=== PATIENT | female | born 1945 | race Hispanic/Latino ===

== ENCOUNTER 2019-02-27 17:01 | Emergency (ER) | payer OTHER ==
--- OUTSIDE RECORDS SUMMARY | 2019-02-27 17:04 | XMS REPORT | Summary of Care ---
:1945 Author Organization [facility] - Health Address [address] [place] [address] Care Team Providers Name Role Phone Joshua Phelps MD Primary Care Provider Encounter Details Date Type Department Care Team Description 02/05/2019 Orders Only [facility] Doctor Unassigned, No [address] [facility] [place] [address] [address] [place] [address] Allergies No Known Allergiesdocumented as of this encounter (statuses as of 02/17/2019) Medications Medication Sig Dispensed Refills Start Date End Date Status aspirin 81 mg chewable Take 1 tablet by 30 tablet 3 08/19/2016 Active tablet mouth daily. gabapentin 300 mg Take 1 capsule 30 capsule 5 09/03/2017 Active capsuleIndications: by mouth at Post herpetic neuralgia bedtime. atorvastatin 40 mg Take 1 tablet by 90 tablet 3 12/02/2017 Active tablet mouth every evening. pantoprazole 40 mg EC Take 1 tablet by 90 tablet 4 03/24/2018 Active tablet mouth daily. benzonatate (TESSALON Take 1 capsule 20 capsule 0 08/26/2018 Active PERLES) 100 mg by mouth 3 capsuleIndications: (three) times Acute URI, Acute daily. bronchitis, unspecified organism albuterol 90 Inhale 2 Puffs 8.5 g 0 08/26/2018 Active mcg/actuation every 6 (six) inhalerIndications: hours as needed Acute URI, Acute for Wheezing. bronchitis, unspecified organism loratadine 10 mg Take 1 tablet by 30 tablet 0 08/26/2018 Active tabletIndications: mouth daily. Acute URI, Acute bronchitis, unspecified organism azithromycin 500 mg Take 1 tablet by 3 tablet 0 11/16/2018 Active tabletIndications: mouth daily. Rhinosinusitis documented as of this encounter (statuses as of 02/17/2019) Active Problems Problem Noted Date Acute pylorus ulcer 07/26/2017 Intractable abdominal pain 07/25/2017 Stroke 08/17/2016 Type 2 diabetes mellitus without complication 05/26/2015 Essential hypertension, benign 05/26/2015 documented as of this encounter (statuses as of 02/17/2019) Resolved Problems Problem Noted Date Resolved Date Contusion, chest wall 05/26/2015 06/13/2015 documented as of this encounter (statuses as of 02/17/2019) Immunizations Name Administration Dates Next Due Influenza Virus Vaccine 05/01/2018, 06/13/2017, 04/16/2016 Pneumococcal 13 Conjugate, PCV13 (Prevnar 12/20/2017 13) Pneumococcal Polysaccharide, PPSV23 07/14/2012 (PNEUMOVAX) documented as of this encounter Social History Tobacco Use Types Packs/Day Years Used Date Never Smoker Smokeless Tobacco: Never Used Alcohol Use Drinks/Week oz/Week Comments No Sex Assigned at Date Recorded Not on file Job Start Date Occupation Industry Not on file Not on file Not on file Travel History Travel Start Travel End No recent travel history available. documented as of this encounter Last Filed Vital Signs Not on filedocumented in this encounter Plan of Treatment Date Type Specialty Care Team Description 03/16/2019 Office Visit Family Medicine Joshua Phelps MD [address] [place] [address] [place] [phone] Health Maintenance Due Date Last Done Comments HEPATITIS C (HCV) SCREEN 1945 EYE EXAM 10/06/1955 DTaP,Tdap,and Td Vaccines (1 - 1964 Tdap) Zoster Recombinant Vaccine 10/06/1995 (SHINGRIX) (1 of 2) MAMMOGRAM 07/04/2006 07/04/2005 Medicare Wellness Visit 2010 Osteoporosis Screening 2010 07/04/2005 URINE MICROALBUMIN 04/30/2017 04/30/2016 FOOT EXAM 07/25/2017 07/25/2016 LDL-C 08/18/2017 08/18/2016, 04/30/2016 HgA1C 03/03/2018 09/03/2017, 04/09/2017, 08/18/2016, Additional history exists CREATININE (SERUM) 07/26/2018 07/26/2017, 07/25/2017, 07/22/2017, Additional history exists INFLUENZA VACCINE 03/14/2019 05/01/2018, 06/13/2017, 04/16/2016 COLONOSCOPY 07/25/2026 07/25/2016 (Previously completed) PNEUMOCOCCAL VACCINES 65+ Completed 12/20/2017, 07/14/2012 documented as of this encounter Implants Implanted Type Area Re Examiner Device Identifier Shelf Expiration Model / Serial Date / Lot Kd KD documented as of this encounter Procedures Procedure Name Priority Date/Time Associated Diagnosis Comments MEDICAL Routine 02/05/2019 12:01 AM CDT RELEASE/CLEARANCE FORMS documented in this encounter Results Not on filedocumented in this encounter Insurance Payer Benefit Plan / Subscriber ID Effective Phone Address Type Group Dates [facility] [id number] 2017-Prese Medicare Adv [employer] nt PPO MANAGED MEDICARE GOLD MEDICARE [place] [id number] 2018-Prese Medicare Adv [employer] nt HMO MANAGED MEDICARE ADV MEDICARE HMO documented as of this encounter
--- OUTSIDE RECORDS SUMMARY | 2019-02-27 17:04 | XMS REPORT | Summary of Care ---
:1945 Author Organization [facility] Address [address] [place] [id number] Care Team Providers Name Role Phone Joshua Phelps MD Primary Care Provider Reason for Visit Reason Comments Refill Request Encounter Details Date Type Department Care Team Description 02/19/2019 Refill [facility] Family Medicine Joshua Phelps MD Refill Request - [address] [facility] [place] [address] [place] [phone] Allergies No Known Allergiesdocumented as of this encounter (statuses as of 02/19/2019) Medications Medication Sig Dispensed Refills Start Date End Date Status aspirin 81 mg chewable Take 1 tablet by 30 tablet 3 08/19/2016 Active tablet mouth daily. gabapentin 300 mg Take 1 capsule by 30 capsule 5 09/03/2017 Active capsuleIndications: mouth at bedtime. Post herpetic neuralgia atorvastatin 40 mg Take 1 tablet by 90 tablet 3 12/02/2017 Active tablet mouth every evening. pantoprazole 40 mg EC Take 1 tablet by 90 tablet 4 03/24/2018 Active tablet mouth daily. benzonatate (TESSALON Take 1 capsule by 20 capsule 0 08/26/2018 Active PERLES) 100 mg mouth 3 (three) capsuleIndications: times daily. Acute URI, Acute bronchitis, unspecified organism albuterol 90 Inhale 2 [...] 0 11/16/2018 Active tabletIndications: mouth daily. Rhinosinusitis losartan 100 mg Take 1 tablet by 90 tablet 1 02/17/2019 Active tabletIndications: mouth daily. Essential hypertension, benign carvedilol 12.5 mg Take 1 tablet by 180 tablet 3 02/17/2019 Active tabletIndications: mouth 2 (two) Essential times daily with hypertension, benign meals. amLODIPine 10 mg Take 1 tablet by 90 tablet 3 02/17/2019 Active tabletIndications: mouth daily. Essential hypertension, benign Blood-Glucose Meter Use as directed 1 Each 0 02/17/2019 Active (ACCU-CHEK VIOLA PLUS for once a day METER) Misc and as needed blood glucose monitoring for ICD E11.9 SITagliptin (JANUVIA) Take 1 tablet by 30 tablet 0 02/17/2019 Active 100 mg tablet mouth daily. metformin ER 500 mg 24 Take 2 tablets by 180 tablet 3 02/17/2019 Active hr tabletIndications: mouth daily with Type 2 diabetes breakfast. mellitus without complication, without long-term current use of insulin documented as of this encounter (statuses as of 02/19/2019) Active Problems Problem Noted Date Acute pylorus ulcer 07/26/2017 Intractable abdominal pain 07/25/2017 Stroke 08/17/2016 Type 2 diabetes mellitus without complication 05/26/2015 Essential hypertension, benign 05/26/2015 documented as of this encounter (statuses as of 02/19/2019) Resolved Problems Problem Noted Date Resolved Date Contusion, chest wall 05/26/2015 06/13/2015 documented as of this encounter (statuses as of 02/19/2019) Immunizations Name Administration Dates Next Due Influenza [...] Office Visit Family Medicine Joshua Phelps MD [address] [place] [address] [place] [phone] Health Maintenance Due Date Last Done Comments [...] of this encounter Implants Implanted Type Area Customer Care Associate Device Identifier Shelf Expiration Model / Serial Date / Lot Kd KD documented as of this encounter Results Not on filedocumented in this encounter Visit Diagnoses Diagnosis Essential hypertension, benign Type 2 diabetes mellitus without complication, without long-term current use of insulin documented in this encounter Insurance Payer Benefit Plan / Subscriber ID Effective Phone Address Type Group Dates [facility] [id number] 2017-Prese Medicare Adv HEALTHCARE - HEALTHCARE nt PPO MANAGED MEDICARE GOLD MEDICARE [place] [id number] 2018-Prese Medicare Adv HEALTHCARE - HEALTHCARE nt HMO MANAGED MEDICARE ADV MEDICARE HMO documented as of this encounter
--- OUTSIDE RECORDS SUMMARY | 2019-02-27 17:04 | XMS REPORT | Summary of Care ---
:1945 Author Organization [facility] Address [address] [place] [address] Care Team Providers Name Role Phone Joshua Phelps MD Primary Care Provider Reason for Visit Reason Comments Refill Request Encounter Details Date Type Department Care Team Description 02/16/2019 Refill [facility] Family Medicine Joshua Phelps MD Refill Request - [address] [facility] [place] [address] [place] [phone] Allergies No Known Allergiesdocumented as of this encounter (statuses as of 02/17/2019) Medications Medication Sig Dispensed Refills Start Date End Date Status aspirin 81 mg Take 1 tablet 30 tablet 3 08/19/2016 Active chewable tablet by mouth daily. gabapentin 300 mg Take 1 capsule 30 capsule 5 09/03/2017 Active capsuleIndications: by mouth at Post herpetic bedtime. neuralgia atorvastatin 40 mg Take 1 tablet 90 tablet 3 12/02/2017 Active tablet by mouth every evening. pantoprazole 40 mg Take 1 tablet 90 tablet 4 03/24/2018 Active EC tablet by mouth daily. benzonatate Take 1 capsule 20 capsule 0 08/26/2018 Active (TESSALON PERLES) by mouth 3 100 mg (three) times capsuleIndications: daily. Acute URI, Acute bronchitis, unspecified organism albuterol 90 Inhale 2 Puffs 8.5 g 0 08/26/2018 Active mcg/actuation every 6 (six) inhalerIndications: hours as needed Acute URI, Acute for Wheezing. bronchitis, unspecified organism loratadine 10 mg Take 1 tablet 30 tablet 0 08/26/2018 Active tabletIndications: by mouth daily. Acute URI, Acute bronchitis, unspecified organism azithromycin 500 mg Take 1 tablet 3 tablet 0 11/16/2018 Active tabletIndications: by mouth daily. Rhinosinusitis losartan 100 mg Take 1 tablet 90 tablet 1 02/17/2019 Active tabletIndications: by mouth daily. Essential hypertension, benign carvedilol 12.5 mg Take 1 tablet 180 tablet 3 02/17/2019 Active tabletIndications: by mouth 2 Essential (two) times hypertension, daily with benign meals. amLODIPine 10 mg Take 1 tablet 90 tablet 3 02/17/2019 Active tabletIndications: by mouth daily. Essential hypertension, benign Blood-Glucose Meter Use as directed 1 Each 0 02/17/2019 Active (ACCU-CHEK VIOLA for once a day PLUS METER) Misc and as needed blood glucose monitoring for ICD E11.9 SITagliptin Take 1 tablet 30 tablet 0 02/17/2019 Active (JANUVIA) 100 mg by mouth daily. tablet metformin ER 500 mg Take 2 tablets 180 tablet 3 02/17/2019 Active 24 hr by mouth daily tabletIndications: with breakfast. Type 2 diabetes mellitus without complication, without long-term current use of insulin sitaGLIPtin Take 100 mg by 0 Discontinued (JANUVIA) 100 mg mouth daily. 9 tablet carvedilol 12.5 mg Take 1 tablet 180 tablet 3 12/02/2017 Discontinued tabletIndications: by mouth 2 9 Essential (two) times hypertension, daily with benign meals. amLODIPine 10 mg Take 1 tablet 90 tablet 3 12/02/2017 Discontinued tabletIndications: by mouth daily. 9 Essential hypertension, benign metformin ER 500 mg Take 2 tablets 180 tablet 3 12/02/2017 Discontinued 24 hr by mouth daily 9 tabletIndications: with breakfast. Type 2 diabetes mellitus without complication, without long-term current use of insulin losartan 100 mg Take 1 tablet 90 tablet 1 03/24/2018 Discontinued tabletIndications: by mouth daily. 9 Essential hypertension, benign ACCU-CHEK VIOLA Use as directed 1 Each 0 05/12/2018 Discontinued PLUS METER Misc for once a day 9 and as needed blood glucose monitoring for ICD E11.9 documented as of this encounter (statuses as [...] Office Visit Family Medicine Joshua Phelps MD [address] [place] [address] [address] [place], JOSE L [phone] Health Maintenance Due Date Last Done Comments [...] of this encounter Implants Implanted Type Area Patient Liaison Device Identifier Shelf Expiration Model / Serial Date / Lot Kd KD documented as of this encounter Results Not on filedocumented in this encounter Visit Diagnoses Diagnosis Essential hypertension, benign Type 2 diabetes mellitus without complication, without long-term current use of insulin documented in this encounter Insurance Payer Benefit Plan / Subscriber ID Effective Phone Address Type Group Dates [facility] [id number] 2017-Prese Medicare Adv HEALTHCARE - HEALTHCARE nt PPO MANAGED MEDICARE GOLD MEDICARE [place] [id number] 2018-Prese Medicare Adv [employer] - HEALTHCARE nt HMO MANAGED MEDICARE ADV MEDICARE HMO documented as of this encounter
--- OUTSIDE RECORDS SUMMARY | 2019-02-27 17:05 | XMS REPORT ---
:1945 Author [facility] Address [address] [place] [address] Care Team Providers Name Role Phone Unavailable Unavailable Unavailable Problems This patient has no known problems. Allergies, Adverse Reactions, Alerts This patient has no known allergies or adverse reactions. Medications This patient has no known medications.
[2019-02-27] MEDS ORDERED: NA CHLORIDE 0.9% 500 ML ONE (17:38)
[2019-02-27 18:07] LABS: Absolute Lymphocytes (CBC) 1.6 K/uL (0.7-4.9); Hematocrit 36.7 % (36.0-45.0); Lymphocytes % 23.3 % (15.3-44.8); MPV 10.8 fL (7.6-11.3); RBC Red Blood Cell Count 4.17 M/uL (3.86-4.86)
[2019-02-27 18:17] LABS: ALT/SGPT 22 U/L (12-78); AST/SGOT 16 U/L (15-37); Albumin 3.4 g/dL (3.4-5.0); Alkaline Phosphatase 143 U/L (45-117); BUN Blood Urea Nitrogen 24 mg/dL (7-18); Bicarbonate 26 mmol/L (21-32); Bilirubin Direct < 0.1 mg/dL (0-0.2); Bilirubin Total 0.2 mg/dL (0.2-1.0); Glucose Level 192 mg/dL (74-106); Lipase 280 U/L (73-393); Potassium 3.7 mmol/L (3.5-5.1); Protein, Total 7.3 g/dL (6.4-8.2); Sodium Level 141 mmol/L (136-145)
[2019-02-27 18:26] LABS: Urine Blood TRACE (NEG); Urine Glucose NEGATIVE (NEG); Urine Protein 3+ (NEG); Urine Specific Gravity >1.030 (1.005-1.030); Urine pH 5.5 (5.0-7.0)
[2019-02-27 18:27] LABS: Urine Bacteria <20 /HPF (<20); Urine Culture Reflex Order NOT NEEDED; Urine RBC <5 /HPF (NONE SEEN)
--- NOTE | 2019-02-27 19:06 | RAD REPORT ---
EXAM DESCRIPTION: CT - Stone Protocol - 02/27/2019 6:58 pm CLINICAL HISTORY: Flank pain. FLANK PAIN COMPARISON: <Comparisons> TECHNIQUE: Axial images were obtained without oral or IV contrast. Lack of contrast limits solid org an and vascular assessment. The lipal-lf-emtr spans the entirety of the system partially obscuring uppermost abdomen and lung bases. Coronal reformatted images were obtained and reviewed. All CT scans are performed using dose optimization technique as appropriate and may include automated exposure control or mA/KV adjustment according to patient size. FINDINGS: Emphysematous changes are present in the lung base. Small hiatal hernia is present. Cholec ystectomy clips. Imaged portions of the liver and spleen show no suspicious findings on non-contrast imaging. The panc reas and adrenal glands are normal. No pathologic lymphadenopathy in the abdomen or pelvis. No urinary tract stones or obstructive uropathy. Left extrarenal pelvis noted. No bowel obstruction, free air, free fluid or abscess. Normal appendix noted. No acute fracture or subluxation seen. Moderate lumbosacral degenerative changes. IMPRESSION: No urinary tract stones or obstructive uropathy. No trauma related abnormality discerned.
[2019-02-27] MEDS ORDERED: KETOROLAC 30 MG/ML INJ ONE (19:07)
--- NOTE | 2019-02-27 19:24 | ER ---
Nurse's Notes [facility] Name: Nell Mendoza Age: 73 yrs Sex: Female : 1945 Arrival Date: 02/27/2019 Time: 17:06 Bed 16 Private MD: Diagnosis: Pain in right hip;Low back pain Presentation: 02/27 17:10 Presenting complaint: Right flank and right hip pain after slipped on stairs and hit hb railing on right side x 1 week ago. Also c/o urinary incontinence since fall. Transition of care: patient was not received from another setting of care. Onset of symptoms was February 27, 2019. Risk Assessment: Do you want to hurt yourself or someone else? Patient reports no desire to harm self or others. Initial Sepsis Screen: Does the patient meet any 2 criteria? No. Patient's initial sepsis screen is negative. Does the patient have a suspected source of infection? No. Patient's initial sepsis screen is negative. Care prior to arrival: None. 17:10 Method Of Arrival: Ambulatory hb 17:10 Acuity: SOPHIA 3 hb Historical: - Allergies: 17:11 No Known Allergies; hb - Immunization history:: Adult Immunizations up to date. - Social history:: Smoking status: Patient/guardian denies using tobacco. - Ebola Screening: : No symptoms or risks identified at this time. Screenin:20 Abuse screen: Denies threats or abuse. Denies injuries from another. Nutritional ca1 screening: No deficits noted. Tuberculosis screening: No symptoms or risk factors identified. Fall Risk Fall in past 12 months (25 points). IV access (20 points). Ambulatory Aid- Crutches/Cane/Walker (15 pts). Assessment: 17:20 General: Appears in no apparent distress. comfortable, Behavior is calm, cooperative, ca1 appropriate for age. Pain: Complains of pain in right low back Pain currently is 8 out of 10 on a pain scale. Pain began about a week. Neuro: Level of Consciousness is awake, alert, obeys commands, Oriented to person, place, time, situation. Cardiovascular: Heart tones S1 S2 present Capillary refill < 3 seconds Patient's skin is warm and dry. Respiratory: Airway is patent Respiratory effort is even, unlabored, Respiratory pattern is regular, symmetrical, Breath sounds are clear bilaterally. GI: Abdomen is round non-distended, Bowel sounds present X 4 quads. Abd is soft and non tender X 4 quads. : Urine is clear. EENT: No deficits noted. No signs and/or symptoms were reported regarding the EENT system. Derm: Skin is intact, is healthy with good turgor, Skin is pink, warm \T\ dry. Musculoskeletal: Circulation, motion, and sensation intact. Capillary refill < 3 seconds, Range of motion: intact in all extremities. 18:19 Reassessment: Patient and/or family updated on plan of care and expected duration. Pain ca1 level reassessed. Patient is alert, oriented x 3, equal unlabored respirations, skin warm/dry/pink. 19:11 Reassessment: Patient appears in no apparent distress at this time. Patient and/or aa1 family updated on plan of care and expected duration. Pain level reassessed. Patient is alert, oriented x 3, equal unlabored respirations, skin warm/dry/pink. Awaiting CT results. 19:50 Reassessment: Patient appears in no apparent distress at this time. Patient is alert, aa1 oriented x 3, equal unlabored respirations, skin warm/dry/pink. Discussed d/c \T\ f/u instructions with pt; denies questions or concerns at this time. Ambulatory to lobby with steady gait Patient states feeling better. Patient states symptoms have improved. Vital Signs: 17:11 BP 189 / 80; Pulse 70; Resp 16; Temp 97.8; Pulse Ox 100% on R/A; Weight 68.95 kg; hb Height 5 ft. 1 in. (154.94 cm); Pain 8/10; 18:00 BP 141 / 53; Pulse 58; Resp 17 S; Pulse Ox 99% on R/A; ca1 19:11 BP 160 / 76; Pulse 60; Resp 18; Pulse Ox 100% on R/A; Pain 8/10; aa1 17:11 Body Mass Index 28.72 (68.95 kg, 154.94 cm) hb ED Course: 17:06 Patient arrived in ED. mr 17:11 Triage completed. hb 17:11 Arm band placed on. hb 17:16 Heraclio Solis PA is PHCP. cp 17:20 Patient has correct armband on for positive identification. Placed in gown. Bed in low ca1 position. Call light in reach. Side rails up X 1. Pulse ox on. NIBP on. Warm blanket given. 17:31 Rosie Payne, KAYLA is Primary Nurse. ca1 17:50 No provider procedures requiring assistance completed. Inserted saline lock: 20 gauge ca1 in left antecubital area, using aseptic technique. Blood collected. 18:26 Adalberto De La Paz MD is Attending Physician. cp 18:59 CT Stone Protocol In Process Unspecified. EDMS 19:00 CT completed. Patient tolerated procedure well. Patient moved back from CT. mw3 19:50 IV discontinued, intact, bleeding controlled, No redness/swelling at site. Pressure aa1 dressing applied. Administered Medications: 17:50 Drug: NS 0.9% 500 ml Route: IV; Rate: 500 ml/hr; Site: left antecubital; ca1 19:07 Drug: TORadol - Ketorolac 15 mg Route: IVP; Site: left antecubital; aa1 19:42 Follow up: Response: No adverse reaction; Pain is decreased aa1 Outcome: 19:23 Discharge ordered by MD. cp 19:50 Discharged to home ambulatory, with family. aa1 19:50 Condition: good 19:50 Discharge instructions given to patient, family, Instructed on discharge instructions, follow up and referral plans. medication usage, Demonstrated understanding of instructions, follow-up care, medications. 19:51 Patient left the ED. aa1 Signatures: Dispatcher [employer] EDRea Cooper RN RN aa1 Raphael Bonnie aguilar Heraclio Solis, GINA PA Kim Boyd RN RN Veda Vital mw3 Rsoie Payne RN RN ca1 Corrections: (The following items were deleted from the chart) 17:47 17:10 Presenting complaint: Right flank and right hip pain after slipped on stairs and hb hit railing on right side 1 week ago. Also c/o urinary incontinence since fall. hb 18:00 17:20 BP 141 / 53; Pulse 58bpm; Resp 17bpm; Spontaneous; Pulse Ox 99% RA; ca1 ca1
--- NOTE | 2019-02-27 19:25 | EDPHYS ---
Physician Documentation [facility] Name: Nell Mendoza Age: 73 yrs Sex: Female : 1945 Arrival Date: 02/27/2019 Time: 17:06 Bed 16 Private MD: ED Physician Adalberto De La Paz HPI: 02/27 17:30 This 73 yrs old Female presents to ER via Ambulatory with complaints of Fall cp Injury. 17:30 The patient or guardian reports pain. cp 17:30 The complaints affect the right low back and right hip. cp 17:30 Onset: The symptoms/episode began/occurred 1 week(s) ago. cp 17:30 Patient reports she was walking down stairs when she lost her balance causing her to cp stumble. Patient denies falling to ground or falling onto stairs but reports continued pain in right lower back, right flank and right hip since. Historical: - Allergies: 17:11 No Known Allergies; hb - Immunization history:: Adult Immunizations up to date. - Social history:: Smoking status: Patient/guardian denies using tobacco. - Ebola Screening: : No symptoms or risks identified at this time. ROS: 17:35 Constitutional: Negative for body aches, chills, fever, poor PO intake. cp 17:35 Eyes: Negative for injury, pain, redness, and discharge. cp 17:35 ENT: Negative for drainage from ear(s), ear pain, sore throat, difficulty swallowing, difficulty handling secretions. 17:35 Cardiovascular: Negative for chest pain, edema, palpitations. 17:35 Respiratory: Negative for cough, shortness of breath, wheezing. 17:35 Abdomen/GI: Negative for abdominal pain, nausea, vomiting, and diarrhea, constipation, black/tarry stool, rectal bleeding, bowel incontinence. 17:35 Back: Positive for pain at rest, pain with movement, of the right low back. 17:35 : Positive for flank pain, bladder incontinence Negative for urinary symptoms. 17:35 MS/extremity: Positive for pain, of the right hip, Negative for injury or acute deformity, decreased range of motion, paresthesias. 17:35 Skin: Negative for cellulitis, rash. 17:35 Neuro: Negative for altered mental status, headache, weakness. 17:35 All other systems are negative. Exam: 17:45 Constitutional: The patient appears in no acute distress, alert, awake, non-toxic, well cp developed, well nourished. 17:45 Head/Face: Normocephalic, atraumatic. cp 17:45 Eyes: Periorbital structures: appear normal, Conjunctiva: normal, no exudate, no injection, Sclera: no appreciated abnormality, Lids and lashes: appear normal, bilaterally. 17:45 ENT: External ear(s): are unremarkable, Nose: is normal, Mouth: is normal, Posterior pharynx: is normal, airway is patent. 17:45 Neck: ROM/movement: is normal, is supple, without pain, no range of motions limitations, no nuchal rigidity. 17:45 Chest/axilla: Inspection: normal, Palpation: is normal, no crepitus, no tenderness. 17:45 Cardiovascular: Rate: normal, Rhythm: regular, Edema: is not appreciated, JVD: is not appreciated. 17:45 Respiratory: the patient does not display signs of respiratory distress, Respirations: normal, no use of accessory muscles, no retractions, no splinting, no tachypnea, labored breathing, is not present, Breath sounds: are clear throughout, no decreased breath sounds, no stridor, no wheezing. 17:45 Abdomen/GI: Inspection: abdomen appears normal, Bowel sounds: active, all quadrants, Palpation: abdomen is soft and non-tender, in all quadrants, rebound tenderness, is not appreciated, voluntary guarding, is not appreciated, involuntary guarding, is not appreciated. 17:45 Back: pain, that is moderate, of the right low back, ROM is painful, CVA tenderness, is absent, vertebral tenderness, is not appreciated. 17:45 Musculoskeletal/extremity: ROM: full passive range of motion, in the right hip, Perfusion: the extremity is normally perfused throughout, Sensation intact. Joints: All joints are normal except the right hip displays pain and tenderness noted posterior right hip, Weight bearing: able to fully bear weight. 17:45 Skin: no rash present. 17:45 Neuro: Orientation: to person, place \T\ time. Mentation: is normal, Motor: moves all fours, strength is normal, Sensation: is normal. Vital Signs: 17:11 BP 189 / 80; Pulse 70; Resp 16; Temp 97.8; Pulse Ox 100% on R/A; Weight 68.95 kg; hb Height 5 ft. 1 in. (154.94 cm); Pain 8/10; 18:00 BP 141 / 53; Pulse 58; Resp 17 S; Pulse Ox 99% on R/A; ca1 19:11 BP 160 / 76; Pulse 60; Resp 18; Pulse Ox 100% on R/A; Pain 8/10; aa1 17:11 Body Mass Index 28.72 (68.95 kg, 154.94 cm) hb MDM: 17:21 Patient medically screened. cp 18:00 Differential diagnosis: hip fracture, bursitis, strain, sciatica, kidney stone, UTI. cp 19:22 Data reviewed: vital signs, nurses notes, lab test result(s), radiologic studies, CT cp scan. 19:22 Counseling: I had a detailed discussion with the patient and/or guardian regarding: the cp historical points, exam findings, and any diagnostic results supporting the discharge/admit diagnosis, lab results, radiology results, the need for outpatient follow up, a family practitioner, to return to the emergency department if symptoms worsen or persist or if there are any questions or concerns that arise at home. Response to treatment: the patient's symptoms have mildly improved after treatment, and as a result, I will discharge patient. 02/27 17:28 Order name: Basic Metabolic Panel; Complete Time: 18:30 cp 02/27 18:30 Interpretation: Normal except: GLUC 192; BUN 24; GFR 41. cp 02/27 17:28 Order name: CBC with Diff; Complete Time: 18:30 cp 02/27 18:30 Interpretation: Normal except: EOSINOPHIL % 4.5. cp 02/27 17:28 Order name: Creatinine for Radiology; Complete Time: 18:30 cp 02/27 17:28 Order name: Hepatic Function; Complete Time: 18:30 cp 02/27 17:28 Order name: Lipase; Complete Time: 18:30 cp 02/27 17:28 Order name: Urine Microscopic Only; Complete Time: 18:30 cp 02/27 17:28 Order name: IV Saline Lock; Complete Time: 17:53 cp 02/27 17:28 Order name: Labs collected and sent; Complete Time: 17:53 cp 02/27 17:28 Order name: Urine Dipstick-Ancillary (obtain specimen); Complete Time: 17:53 cp 02/27 17:56 Order name: Urine Dipstick--Ancillary (enter results); Complete Time: 18:30 ms 02/27 18:31 Order name: CT Stone Protocol; Complete Time: 19:18 cp 02/27 19:18 Interpretation: Report reviewed. cp Administered Medications: 17:50 Drug: NS 0.9% 500 ml Route: IV; Rate: 500 ml/hr; Site: left antecubital; ca1 19:07 Drug: TORadol - Ketorolac 15 mg Route: IVP; Site: left antecubital; aa1 19:42 Follow up: Response: No adverse reaction; Pain is decreased aa1 Disposition: 02/27/19 19:23 Discharged to Home. Impression: Pain in right hip, Low back pain. - Condition is Stable. - Discharge Instructions: Back Pain, Adult, Hip Pain, Back Exercises. - Prescriptions for Mobic 7.5 mg Oral Tablet - take 1 tablet by ORAL route once daily take with food; 20 tablet. Tramadol 50 mg Oral Tablet - take 1 tablet by ORAL route every 8 hours as needed; 12 tablet. - Medication Reconciliation Form, Thank You Letter, Antibiotic Education, Prescription Opioid Use form. - Follow up: Private Physician; When: 2 - 3 days; Reason: Recheck today's complaints. - Problem is new. - Symptoms have improved. Signatures: Dispatcher [employer] EDRea Cooper RN RN aa1 Heraclio Solis PA PA cp Kim Casey RN RN Rosie Payne RN RN ca1 Corrections: (The following items were deleted from the chart) 19:51 19:23 02/27/2019 19:23 Discharged to Home. Impression: Pain in right hip; Low back aa1 pain. Condition is Stable. Forms are Medication Reconciliation Form, Thank You Letter, Antibiotic Education, Prescription Opioid Use. Follow up: Private Physician; When: 2 - 3 days; Reason: Recheck today's complaints. Problem is new. Symptoms have improved. cp
== END 2019-02-27 19:51 | disposition home or self-care (01) ==
LOC: ER 17:01
DX: M54.5 Low back pain (principal); M25.551 Pain in right hip; W17.89XA Other fall from one level to another, initial encounter; Y93.89 Activity, other specified
CPT/HCPCS: 36415; 74176; 76377; 80048; 80076; 81003; 81015; 83690; 85025; 96374; 99284

== ENCOUNTER 2022-12-02 13:35 | Emergency (ER) | payer MEDICARE, OTHER ==
--- OUTSIDE RECORDS SUMMARY | 2022-12-02 13:39 | XMS REPORT | Continuity of Care Document ---
:1945 Author Organization [facility] Address [address] [place] [address] Care Team Providers Name Role Phone Peyton Phelps MD Primary Care Physician Ruel Olivera Attending Clinician Unavailable Iyanoye_S Attending Clinician Unavailable Modeste_s Attending Clinician Unavailable Bryan Hernandez MD Attending Clinician BRYAN HERNANDEZ Attending Clinician Unavailable MARK RAM Attending Clinician Unavailable ERNESTO KARIMI Attending Clinician Unavailable RUTH ADAME Attending Clinician Unavailable MARY JANE ROBLES Attending Clinician Unavailable MARY JANE ROBLES Attending Clinician Unavailable STU HOUSE Attending Clinician Unavailable PEYTON PHELPS Attending Clinician Unavailable CHARO ELIZABETH Attending Clinician Unavailable Iyanoye_S Admitting Clinician Unavailable Modeste_s Admitting Clinician Unavailable Payers Payer Name Policy Type Policy Number Effective Date Expiration Date S [facility] [id number] (MEDICARE 00:00:00 REPLACEMENT HMO) [place] [id number] [id number] 2020 Common 00:00:00 [facility] HUMANA CHOICE [id number] 2019 00:00:00 [facility] [id number] 2017 MEDICARE GOLD 00:00:00 Problems Condition Condition Condition Status Onset Resolution Last Treating Co mments Source Name Details Category Date Date Treatment Clinician Date Acute Acute Disease Active Univers pylorus pylorus 1-13 ity of ulcer ulcer 00:00: [place] 00 Medical Branch Intractabl Intractabl Disease Active U nivers e e 112 [place]y of abdominal abdominal [place] [facility] Stroke Stroke Disease Active Univers 2-04 ity of 00:00: [place] 00 [facility] Branch 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 ity of mellitus mellitus 00:00: [place] without without 00 Medical complicati complicati Br anch on on Essential Essential Disease Active 2014-07 Uni vers hypertensi hypertensi 07-26 [place] [address] [place] [address] [id number] Mixed Problem Common hyperlipid Spirit emia - [facility] [id number] Essential Problem Comm on hypertensi Spirit on - [facility] [id number] Bilateral Problem Comm on hearing Spirit loss, - CHI unspecifie [facility] hearing [facility] loss type Medical Center [id number] Type 2 [place] [id number] diabetes Spirit mellitus - CHI with other [facility] kidney Medical complicati Center on [id number] Noncomplia Problem Co mmon nce with Spirit dietary - CHI restrictio [facility] [id number] Dementia Problem Commo n without Spirit behavioral - CHI disturbanc 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 [facility] [id number] Type 2 Problem Common diabetes Spirit mellitus - CHI with [facility] Allergies, Adverse Reactions, Alerts Allergy Allergy Status Severity Reaction(s) Onset Inactive Treating Comm ents Source Name Type Date Date Clinician NO KNOWN Drug Active Univers ALLERGIE Class ity of S [facility] Social History Social Habit Start Date Stop Date Quantity Comments Source History of [facility] - Tobacco Use [facility] Sex Assigned At [facility] alma delia - [facility] Alcohol intake 2020-10-02 2020-10-02 Current University of 00:00:00 00:00:00 non-drinker of [facility] alcohol (finding) [place] Tobacco use and 2015-06-13 2015-06-13 Smokeless tobacco Un iversity of exposure 00:00:00 00:00:00 non-user [facility] Smoking Status Start Date Stop Date Source Never Smoker [facility] Medications Ordered Filled Start Stop Current Ordering Indication Dosage Frequency Signature Comments Components Source Medication Medication Date Date Medication? Clinician (SIG) Name Name Insulin Yes [id number] USE Univ ers [place], 7-12 DIRECTED ity of Disposable, 00:00: TO [place] (BD INSULIN 00 ADMINISTER Me dical PEN NEEDLE LATNUS Branch UF) 31 DAILY gauge x 5/16" Ndle RIVASTIGMIN Yes APPLY ONE U nivers E 4.6 mg/24 5-03 PATCH TO ity of hour patch 00:00: THE SKIN Michael as 00 DAILY Medical Branch BASAGLAR Yes 14U inject 14 Univ ers KWIKPEN 4-02 Units ity of U-100 00:00: under the [place] INSULIN 100 00 skin Medical unit/mL (3 daily. Branch mL) injection dulaglutide Yes [id number] .75mg inject Univers (TRULICITY) 3-22 0.75 mg ity o f 0.75 mg/0.5 00:00: under the [place] mL PnIj 00 skin Medical weekly. Branch metformin Yes [id number] 500mg Take 1 U nivers ER 500 mg 3-22 tablet by ity o f 24 hr 00:00: mouth [place] tablet 00 daily with Medical breakfast. Branch pantoprazol Yes 40mg Take 1 Univ ers e 40 mg EC 1-07 tablet by ity of tablet 00:00: mouth [place] 00 daily. Medical Branch Blood-Gluco Yes Use as Univ ers se Meter 9-16 directed ity of (ACCU-CHEK 00:00: for once a [place] VIOLA PLUS 00 day and as Med ical METER) [facility] needed Branch blood glucose monitoring for ICD E11.9 losartan Yes [id number] 100mg Take 1 Uni vers 100 mg 9-16 tablet by ity of tablet 00:00: mouth [place] 00 daily. Medical Branch amLODIPine Yes [id number] 10mg Take 1 Un nirali 10 mg 9-16 tablet by ity of tablet 00:00: mouth [place] 00 daily. Medical Branch carvediloL Yes [id number] 12.5mg Take 1 Univers 12.5 mg 9-16 tablet by ity of tablet 00:00: mouth 2 [place] 00 (two) Medical times Branch daily with meals. loratadine Yes [id number] 10mg Take 1 U nivers 10 mg 2-13 tablet by ity of tablet 00:00: mouth [place] 00 daily. Medical Branch atorvastati Yes 40mg Take 1 Univ ers n 40 mg 5-22 tablet by ity of tablet 00:00: mouth [place] 00 every Medical evening. Branch gabapentin Yes [id number] 300mg Take 1 U nivers 300 mg 2-21 capsule by ity of capsule 00:00: mouth at [place] 00 bedtime. Medical Branch aspirin 81 Yes 81mg Take 1 Unive rs mg chewable 2-06 tablet by ity of tablet 00:00: mouth [place] 00 daily. Medical Branch Carvedilol Carvedilol No Carvedilol 12.5 MG 12.5 MG 12.5 MG Trulicity Trulicity No Trulicity 0.75 0.75 0.75 MG/0.5ML MG/0.5ML MG/0.5ML Lantus Lantus No Lantus SoloStar SoloStar SoloStar 100 UNIT/ML 100 UNIT/ML 100 UNIT/ML Lisinopril Lisinopril No 1{table QD Lisinopril 2.5 MG 2.5 MG t} 2.5 MG Aspirin 81 Aspirin 81 No 1{table QD Aspirin 81 81 MG 81 MG t} 81 MG BD Pen BD Pen No BD Pen Needle Needle Needle Short U/F Short U/F Short U/F 31G X 8 MM 31G X 8 MM 31G X 8 MM Pantoprazol Pantoprazol No Pantoprazo e Sodium 40 e Sodium 40 le Sodium MG MG 40 MG metFORMIN metFORMIN No BID metFORMIN HCl ER 750 HCl ER 750 HCl ER 750 MG MG MG amLODIPine amLODIPine No amLODIPine Besylate 10 Besylate 10 Besylate MG MG 10 MG Rivastigmin Rivastigmin No 1{patch QD Rivastigmi e 4.6 e 4.6 _to_ski ne 4.6 MG/24HR MG/24HR n} MG/24HR Pantoprazol Pantoprazol No Pantoprazo e Sodium 40 e Sodium 40 le Sodium MG MG 40 MG Lisinopril Lisinopril No 1{table QD Lisinopril 2.5 MG 2.5 MG t} 2.5 MG amLODIPine amLODIPine No amLODIPine Besylate 10 Besylate 10 Besylate MG MG 10 MG Rivastigmin Rivastigmin No 1{patch QD Rivastigmi e 4.6 e 4.6 _to_ski ne 4.6 MG/24HR MG/24HR n} MG/24HR Lantus Lantus No Lantus SoloStar SoloStar SoloStar 100 UNIT/ML 100 UNIT/ML 100 UNIT/ML Aspirin 81 Aspirin 81 No 1{table QD Aspirin 81 81 MG 81 MG t} 81 MG metFORMIN metFORMIN No BID metFORMIN HCl ER 750 HCl ER 750 HCl ER 750 MG MG MG Carvedilol Carvedilol No Carvedilol 12.5 MG 12.5 MG 12.5 MG Trulicity Trulicity No Trulicity 0.75 0.75 0.75 MG/0.5ML MG/0.5ML MG/0.5ML BD Pen BD Pen No BD Pen Needle Needle Needle Short U/F Short U/F Short U/F 31G X 8 MM 31G X 8 MM 31G X 8 MM Lantus Lantus No Lantus SoloStar SoloStar SoloStar 100 UNIT/ML 100 UNIT/ML 100 UNIT/ML Pantoprazol Pantoprazol No Pantoprazo e Sodium 40 e Sodium 40 le Sodium MG MG 40 MG Aspirin 81 Aspirin 81 No 1{table QD Aspirin 81 81 MG 81 MG t} 81 MG Carvedilol Carvedilol No Carvedilol 12.5 MG 12.5 MG 12.5 MG Rivastigmin Rivastigmin No 1{patch QD Rivastigmi e 4.6 e 4.6 _to_ski ne 4.6 MG/24HR MG/24HR n} MG/24HR Trulicity Trulicity No Trulicity 0.75 0.75 0.75 MG/0.5ML MG/0.5ML MG/0.5ML Carvedilol Carvedilol No Carvedilol 12.5 MG 12.5 MG 12.5 MG amLODIPine amLODIPine No amLODIPine Besylate 10 Besylate 10 Besylate MG MG 10 MG Pantoprazol Pantoprazol No Pantoprazo e Sodium 40 e Sodium 40 le Sodium MG MG 40 MG Lisinopril Lisinopril No 1{table QD Lisinopril 2.5 MG 2.5 MG t} 2.5 MG metFORMIN metFORMIN No BID metFORMIN HCl ER 750 HCl ER 750 HCl ER 750 MG MG MG BD Pen BD Pen No BD Pen Needle Needle Needle Short U/F Short U/F Short U/F 31G X 8 MM 31G X 8 MM 31G X 8 MM metFORMIN metFORMIN No metFORMIN HCl ER 750 HCl ER 750 HCl ER 750 MG MG MG Lisinopril Lisinopril No 1{table QD Lisinopril 2.5 MG 2.5 MG t} 2.5 MG Carvedilol Carvedilol No Carvedilol 12.5 MG 12.5 MG 12.5 MG metFORMIN metFORMIN No BID metFORMIN HCl ER 750 HCl ER 750 HCl ER 750 MG MG MG Aspirin 81 Aspirin 81 No 1{table QD Aspirin 81 81 MG 81 MG t} 81 MG Rivastigmin Rivastigmin No 1{patch QD Rivastigmi e 4.6 e 4.6 _to_ski ne 4.6 MG/24HR MG/24HR n} MG/24HR Carvedilol Carvedilol No Carvedilol 12.5 MG 12.5 MG 12.5 MG Lantus Lantus No Lantus SoloStar SoloStar SoloStar 100 UNIT/ML 100 UNIT/ML 100 UNIT/ML Pantoprazol Pantoprazol No Pantoprazo e Sodium 40 e Sodium 40 le Sodium MG MG 40 MG Pantoprazol Pantoprazol No Pantoprazo e Sodium 40 e Sodium 40 le Sodium MG MG 40 MG metFORMIN metFORMIN No metFORMIN HCl ER 750 HCl ER 750 HCl ER 750 MG MG MG Trulicity Trulicity No Trulicity 0.75 0.75 0.75 MG/0.5ML MG/0.5ML MG/0.5ML BD Pen BD Pen No BD Pen Needle Needle Needle Short U/F Short U/F Short U/F 31G X 8 MM 31G X 8 MM 31G X 8 MM amLODIPine amLODIPine No amLODIPine Besylate 10 Besylate 10 Besylate MG MG 10 MG Carvedilol Carvedilol No Carvedilol 12.5 MG 12.5 MG 12.5 MG amLODIPine amLODIPine No amLODIPine Besylate 10 Besylate 10 Besylate MG MG 10 MG Rivastigmin Rivastigmin No 1{patch QD Rivastigmi e 4.6 e 4.6 _to_ski ne 4.6 MG/24HR MG/24HR n} MG/24HR Lantus Lantus No Lantus SoloStar SoloStar SoloStar 100 UNIT/ML 100 UNIT/ML 100 UNIT/ML metFORMIN metFORMIN No BID metFORMIN HCl ER 750 HCl ER 750 HCl ER 750 MG MG MG Lisinopril Lisinopril No 1{table QD Lisinopril 2.5 MG 2.5 MG t} 2.5 MG Pantoprazol Pantoprazol No Pantoprazo e Sodium 40 e Sodium 40 le Sodium MG MG 40 MG Pantoprazol Pantoprazol No Pantoprazo e Sodium 40 e Sodium 40 le Sodium MG MG 40 MG metFORMIN metFORMIN No metFORMIN HCl ER 750 HCl ER 750 HCl ER 750 MG MG MG BD Pen BD Pen No BD Pen Needle Needle Needle Short U/F Short U/F Short U/F 31G X 8 MM 31G X 8 MM 31G X 8 MM Aspirin 81 Aspirin 81 No 1{table QD Aspirin 81 81 MG 81 MG t} 81 MG Trulicity Trulicity No Trulicity 0.75 0.75 0.75 MG/0.5ML MG/0.5ML MG/0.5ML Carvedilol Carvedilol No Carvedilol 12.5 MG 12.5 MG 12.5 MG Trulicity Trulicity No Trulicity 0.75 0.75 0.75 MG/0.5ML MG/0.5ML MG/0.5ML Lisinopril Lisinopril No 1{table QD Lisinopril 2.5 MG 2.5 MG t} 2.5 MG Carvedilol Carvedilol No Carvedilol 12.5 MG 12.5 MG 12.5 MG metFORMIN metFORMIN No BID metFORMIN HCl ER 750 HCl ER 750 HCl ER 750 MG MG MG Pantoprazol Pantoprazol No Pantoprazo e Sodium 40 e Sodium 40 le Sodium MG MG 40 MG metFORMIN metFORMIN No metFORMIN HCl ER 750 HCl ER 750 HCl ER 750 MG MG MG Pantoprazol Pantoprazol No Pantoprazo e Sodium 40 e Sodium 40 le Sodium MG MG 40 MG Aspirin 81 Aspirin 81 No 1{table QD Aspirin 81 81 MG 81 MG t} 81 MG amLODIPine amLODIPine No amLODIPine Besylate 10 Besylate 10 Besylate MG MG 10 MG Rivastigmin Rivastigmin No 1{patch QD Rivastigmi e 4.6 e 4.6 _to_ski ne 4.6 MG/24HR MG/24HR n} MG/24HR Lisinopril Lisinopril No Lisinopril 2.5 MG 2.5 MG 2.5 MG BD Pen BD Pen No BD Pen Needle Needle Needle Short U/F Short U/F Short U/F 31G X 8 MM 31G X 8 MM 31G X 8 MM Rivastigmin Rivastigmin No Rivastigmi e 4.6 e 4.6 ne 4.6 MG/24HR MG/24HR MG/24HR Carvedilol Carvedilol No Carvedilol 12.5 MG 12.5 MG 12.5 MG Lantus Lantus No Lantus SoloStar SoloStar SoloStar 100 UNIT/ML 100 UNIT/ML 100 UNIT/ML Carvedilol Carvedilol No Carvedilol 12.5 MG 12.5 MG 12.5 MG Trulicity Trulicity No Trulicity 0.75 0.75 0.75 MG/0.5ML MG/0.5ML MG/0.5ML metFORMIN metFORMIN No BID metFORMIN HCl ER 750 HCl ER 750 HCl ER 750 MG MG MG BD Pen BD Pen No BD Pen Needle Needle Needle Short U/F Short U/F Short U/F 31G X 8 MM 31G X 8 MM 31G X 8 MM Aspirin 81 Aspirin 81 No 1{table QD Aspirin 81 81 MG 81 MG t} 81 MG Lantus Lantus No Lantus SoloStar SoloStar SoloStar 100 UNIT/ML 100 UNIT/ML 100 UNIT/ML amLODIPine amLODIPine No amLODIPine Besylate 10 Besylate 10 Besylate MG MG 10 MG Pantoprazol Pantoprazol No Pantoprazo e Sodium 40 e Sodium 40 le Sodium MG MG 40 MG Lisinopril Lisinopril No 1{table QD Lisinopril 2.5 MG 2.5 MG t} 2.5 MG Rivastigmin Rivastigmin No 1{patch QD Rivastigmi e 4.6 e 4.6 _to_ski ne 4.6 MG/24HR MG/24HR n} MG/24HR Carvedilol Carvedilol No Carvedilol 12.5 MG 12.5 MG 12.5 MG Trulicity Trulicity No Trulicity 0.75 0.75 0.75 MG/0.5ML MG/0.5ML MG/0.5ML metFORMIN metFORMIN No BID metFORMIN HCl ER 750 HCl ER 750 HCl ER 750 MG MG MG BD Pen BD Pen No BD Pen Needle Needle Needle Short U/F Short U/F Short U/F 31G X 8 MM 31G X 8 MM 31G X 8 MM Aspirin 81 Aspirin 81 No 1{table QD Aspirin 81 81 MG 81 MG t} 81 MG Lantus Lantus No Lantus SoloStar SoloStar SoloStar 100 UNIT/ML 100 UNIT/ML 100 UNIT/ML amLODIPine amLODIPine No amLODIPine Besylate 10 Besylate 10 Besylate MG MG 10 MG Pantoprazol Pantoprazol No Pantoprazo e Sodium 40 e Sodium 40 le Sodium MG MG 40 MG Lisinopril Lisinopril No 1{table QD Lisinopril 2.5 MG 2.5 MG t} 2.5 MG Rivastigmin Rivastigmin No 1{patch QD Rivastigmi e 4.6 e 4.6 _to_ski ne 4.6 MG/24HR MG/24HR n} MG/24HR Carvedilol Carvedilol No Carvedilol 12.5 MG 12.5 MG 12.5 MG Trulicity Trulicity No Trulicity 0.75 0.75 0.75 MG/0.5ML MG/0.5ML MG/0.5ML metFORMIN metFORMIN No BID metFORMIN HCl ER 750 HCl ER 750 HCl ER 750 MG MG MG BD Pen BD Pen No BD Pen Needle Needle Needle Short U/F Short U/F Short U/F 31G X 8 MM 31G X 8 MM 31G X 8 MM Aspirin 81 Aspirin 81 No 1{table QD Aspirin 81 81 MG 81 MG t} 81 MG Lantus Lantus No Lantus SoloStar SoloStar SoloStar 100 UNIT/ML 100 UNIT/ML 100 UNIT/ML amLODIPine amLODIPine No amLODIPine Besylate 10 Besylate 10 Besylate MG MG 10 MG Pantoprazol Pantoprazol No Pantoprazo e Sodium 40 e Sodium 40 le Sodium MG MG 40 MG Lisinopril Lisinopril No 1{table QD Lisinopril 2.5 MG 2.5 MG t} 2.5 MG Rivastigmin Rivastigmin No 1{patch QD Rivastigmi e 4.6 e 4.6 _to_ski ne 4.6 MG/24HR MG/24HR n} MG/24HR Immunizations Ordered Filled Immunization Date Status Comments Sourc e Immunization Name Name FLUZONE HIGH DOSE FLUZONE HIGH DOSE 2022-06-19 Completed [facility] - OVER 65 OVER 65 11:26:00 [facility] FLUZONE HIGH DOSE FLUZONE HIGH DOSE 2022-06-19 Completed [facility] - OVER 65 OVER 65 11:26:00 [facility] Fluzone Fluzone 2021-06-05 Completed [facility] - 08:50:00 [facility] Fluzone Fluzone 2021-06-05 Completed [facility] - 08:50:00 [facility] Fluzone Fluzone 2021-06-05 Completed [facility] - 08:50:00 [facility] Fluzone Fluzone 2021-06-05 Completed [facility] - 08:50:00 [facility] Fluzone Fluzone 2021-06-05 Completed [facility] - 08:50:00 [facility] Fluzone Fluzone 2021-06-05 Completed [facility] - 08:50:00 [facility] Fluzone Fluzone 2021-06-05 Completed [facility] - 08:50:00 [facility] Fluzone Fluzone 2021-06-05 Completed [facility] - 08:50:00 [facility] Fluzone Fluzone 2021-06-05 Completed [facility] - 08:50:00 [facility] SARS-COV-2 COVID-19 2020-10-08 Completed Unive rsity of MODERNA VACCINE 00:00:00 [facility] Branch SARS-COV-2 COVID-19 2020-09-10 Completed Unive rsity of MODERNA VACCINE 00:00:00 [facility] Branch Prevnar 13 (PCV13) Prevnar 13 (PCV13) 2020-07-13 Completed [facility] - 13:18:00 [facility] Prevnar 13 (PCV13) Prevnar 13 (PCV13) 2020-07-13 Completed [facility] - 13:18:00 [facility] Prevnar 13 (PCV13) Prevnar 13 (PCV13) 2020-07-13 Completed [facility] - 13:18:00 [facility] Prevnar 13 (PCV13) Prevnar 13 (PCV13) 2020-07-13 Completed [facility] - 13:18:00 [facility] Prevnar 13 (PCV13) Prevnar 13 (PCV13) 2020-07-13 Completed [facility] - 13:18:00 [facility] Prevnar 13 (PCV13) Prevnar 13 (PCV13) 2020-07-13 Completed [facility] - 13:18:00 [facility] Prevnar 13 (PCV13) Prevnar 13 (PCV13) 2020-07-13 Completed [facility] - 13:18:00 [facility] Prevnar 13 (PCV13) Prevnar 13 (PCV13) 2020-07-13 Completed [facility] - 13:18:00 [facility] Prevnar 13 (PCV13) Prevnar 13 (PCV13) 2020-07-13 Completed [facility] - 13:18:00 [facility] Influenza High Dose 2020-06-24 Completed Unive rsity of Quad 00:00:00 [facility] Pneumococcal 2020-06-24 Completed University o f Polysaccharide, 00:00:00 [facility] PPSV23 (PNEUMOVAX) Branch Shingrix Shingrix 2018-07-13 Completed [facility] - 13:19:00 [facility] Shingrix Shingrix 2018-07-13 Completed [facility] - 13:19:00 [facility] Shingrix Shingrix 2018-07-13 Completed [facility] - 13:19:00 [facility] Shingrix Shingrix 2018-07-13 Completed [facility] - 13:19:00 [facility] Shingrix Shingrix 2018-07-13 Completed [facility] - 13:19:00 [facility] Shingrix Shingrix 2018-07-13 Completed [facility] - 13:19:00 [facility] Shingrix Shingrix 2018-07-13 Completed [facility] - 13:19:00 [facility] Shingrix Shingrix 2018-07-13 Completed [facility] - 13:19:00 [facility] Shingrix Shingrix 2018-07-13 Completed [facility] - 13:19:00 [facility] Influenza Virus 2018-05-01 Completed Universit y of Vaccine 00:00:00 [facility] Pneumococcal 13 2017-12-20 Completed Universit y of Conjugate, PCV13 00:00:00 [facility] dical (Prevnar 13) Branch Influenza Virus 2017-06-13 Completed Universit y of Vaccine 00:00:00 [facility] Influenza Virus 2016-04-16 Completed Universit y of Vaccine 00:00:00 [facility] Pneumococcal 2012-07-14 Completed University o f Polysaccharide, 00:00:00 [facility] ica PPSV23 (PNEUMOVAX) Branch Vital Signs Vital Name Observation Time Observation Value Comments Source height 2022-06-19 11:10:00 61 [in_i] [facility] weight 2022-06-19 11:10:00 152.3 [lb_av] [facility] temperature 2022-06-19 11:10:00 96.8 [degF] [facility] bmi 2022-06-19 11:10:00 28.77 kg/m2 [facility] oximetry 2022-06-19 11:10:00 98 % [facility] respiratory rate 2022-06-19 11:10:00 17 /min Comm on [facility] blood pressure 2022-06-19 11:10:00 128 mm[Hg] [facility] - systolic [facility] blood pressure 2022-06-19 11:10:00 62 mm[Hg] [facility] - diastolic [facility] height 2022-03-20 09:50:00 61 [in_i] [facility] 2022-03-20 09:50:00 151 [lb_av] Common S pirit [facility] temperature 2022-03-20 09:50:00 97.6 [degF] Common S pirit [facility] bmi 2022-03-20 09:50:00 28.53 kg/m2 Common S pirit [facility] oximetry 2022-03-20 09:50:00 95 % Common S pirit [facility] respiratory rate 2022-03-20 09:50:00 18 /min Comm on [facility] blood pressure 2022-03-20 09:50:00 132 mm[Hg] [facility] - systolic [facility] blood pressure 2022-03-20 09:50:00 67 mm[Hg] [facility] - diastolic [facility] height 2021-12-19 09:00:00 61 [in_i] Common [facility] weight 2021-12-19 09:00:00 151.3 [lb_av] Common [facility] temperature 2021-12-19 09:00:00 97.9 [degF] Common [facility] bmi 2021-12-19 09:00:00 28.58 kg/m2 [facility] oximetry 2021-12-19 09:00:00 96 % [facility] 2021-12-19 09:00:00 17 /min Comm on [facility] blood pressure 2021-12-19 09:00:00 133 mm[Hg] [facility] - systolic [facility] blood pressure 2021-12-19 09:00:00 78 mm[Hg] [facility] - diastolic [facility] height 2021-09-04 10:10:00 61 [in_i] Common [facility] weight 2021-09-04 10:10:00 159 [lb_av] Common S pirit [facility] temperature 2021-09-04 10:10:00 97.3 [degF] Common S pirit [facility] bmi 2021-09-04 10:10:00 30.04 kg/m2 Common S pirit - [facility] oximetry 2021-09-04 10:10:00 95 % [facility] respiratory rate 2021-09-04 10:10:00 17 /min Comm on [facility] blood pressure 2021-09-04 10:10:00 136 mm[Hg] [facility] - systolic [facility] blood pressure 2021-09-04 10:10:00 63 mm[Hg] [facility] - diastolic [facility] height 2021-06-05 09:00:00 61 [in_i] [facility] weight 2021-06-05 09:00:00 153.0 [lb_av] [facility] temperature 2021-06-05 09:00:00 97.4 [degF] [facility] bmi 2021-06-05 09:00:00 28.91 kg/m2 [facility] oximetry 2021-06-05 09:00:00 93 % [facility] respiratory rate 2021-06-05 09:00:00 16 /min Comm on [facility] blood pressure 2021-06-05 09:00:00 135 mm[Hg] [facility] - systolic [facility] blood pressure 2021-06-05 09:00:00 76 mm[Hg] [facility] - diastolic [facility] height 2020-12-13 13:30:00 61 [in_i] Common S pirit [facility] weight 2020-12-13 13:30:00 157.6 [lb_av] [facility] temperature 2020-12-13 13:30:00 96.8 [degF] Common S pirit [facility] bmi 2020-12-13 13:30:00 29.78 kg/m2 Common S pirit [facility] oximetry 2020-12-13 13:30:00 97 % Common S [facility] respiratory rate 2020-12-13 13:30:00 16 /min Comm on [facility] blood pressure 2020-12-13 13:30:00 132 mm[Hg] [facility] - systolic [facility] blood pressure 2020-12-13 13:30:00 65 mm[Hg] [facility] - diastolic [facility] Procedures This patient has no known procedures. Encounters Start End Encounter Admission Attending Care Care Encounter Source Date/Time Date/Time Type Type Clinicians Facility Department ID 2022-09-16 Outpatient Olivera, STLMLC STLMLC [id number] Common 08:44:02 R[place] [id number] [facility] 2022-06-17 Outpatient Olivera, STLMLC STLMLC [id number] Common 08:16:03 Ruel [id number] [facility] 2021-09-04 Outpatient Olivera, STLMLC STLMLC [id number] Common 09:03:02 Ruel [facility] 2021-08-08 Outpatient Olivera, STLMLC STLMLC [id number] Common 14:34:19 Ruel [facility] 2021-08-08 Outpatient Olivera, STLMLC STLMLC [id number] Common 13:58:09 Ruel [id number] [facility] 2021-08-08 Outpatient Olivera, STLMLC STLMLC [id number] Common 13:30:10 Ruel [address] [facility] 2021-08-08 Outpatient Olivera, STLMLC STLMLC [id number] Common 13:10:16 Ruel [id number] [facility] 2022-06-19 2022-06-19 OFFICE STLMLC STLC [id number] Co mmon 00:00:00 00:00:00 VISIT [facility] LEVEL 4 [facility] 2022-06-11 2022-06-11 Outpatient Iyanoye_S [facility] [id number] [facility] 00:00:00 00:00:00 [id number] [facility] 2022-06-11 2022-06-11 Outpatient Iyanoye_S [facility] [id number] [facility] 00:00:00 00:00:00 [id number] Medica l Group 2022-06-10 2022-06-10 Outpatient Modeste_s [facility] [place] [id number] [facility] 00:00:00 00:00:00 [id number] Medica l Group 2022-05-28 2022-05-28 [facility] [id number] Devoted 00:00:00 00:00:00 [id number] Medica l Group 2022-05-17 2022-05-17 (TEL) STLC STLC [id number] Co mmon 00:00:00 00:00:00 Spirit - CHI [facility] 2022-03-20 2022-03-20 [facility] [id number] Co mmon 00:00:00 00:00:00 VISIT Spirit ESTAB PT - CHI LEVEL 4 [facility] 2022-02-21 2022-02-21 Easton Hrenandez [facility] [id number] Univers 00:00:00 00:00:00 Bryan PRIMARY [id number] it y of CARE [id number] Sue BANERJEE [id number] Me dical 220 Branch 2022-01-25 2022-01-25 [facility] [id number] Devoted 07:05:00 07:05:00 [id number] Medica l Group 2021-12-19 2021-12-19 [facility] [id number] Common 00:00:00 00:00:00 MCR Spirit WELLNESS - CHI VISIT [facility] 2021-10-17 2021-10-17 [facility] [id number] Devoted 09:01:00 09:01:00 [id number] Medica l Group 2021-09-04 2021-09-04 OFFICE STLC STLC [id number] Co mmon 00:00:00 00:00:00 VISIT Spirit ESTAB PT - CHI LEVEL 4 [facility] 2021-06-20 2021-06-20 (TEL) STLMLC STLMLC [id number] Co mmon 00:00:00 00:00:00 [facility] 2021-06-11 2021-06-11 (TEL) STLMLC STLMLC [id number] Co mmon 00:00:00 00:00:00 [facility] 2021-06-05 2021-06-05 OFFICE STLMLC STLMLC [id number] Co mmon 00:00:00 00:00:00 VISIT Spirit ESTAB PT - CHI LEVEL 4 [facility] 2021-04-10 2021-04-10 Outpatient R DAVID [facility] [id number] Univers 09:30:00 09:30:00 BRYAN [facility] 2021-04-09 2021-04-09 Outpatient Rosales HERNANDEZ [facility] [id number] Univers 08:00:00 08:00:00 BRYAN [facility] 2021-02-16 2021-02-16 Outpatient STLMLC STLMLC [id number] Common 00:00:00 00:00:00 [facility] 2021-02-16 2021-02-16 Outpatient STLMLC STLMLC [id number] Common 00:00:00 00:00:00 [facility] 2020-12-13 2020-12-13 OFFICE STLMLC STLMLC [id number] Co mmon 00:00:00 00:00:00 VISIT NEW Spir it PT LEVEL 3 - CHI [facility] 2020-10-20 2020-10-20 Outpatient R YO [facility] [id number] Univers 08:30:00 08:30:00 MARK [facility] 2020-10-08 2020-10-08 Outpatient [facility] [id number] Univers 09:30:00 09:30:[facility] 2020-10-02 2020-10-02 [facility] [id number] Univers 13:00:00 13:00:00 BRYAN [facility] 2020-09-10 2020-09-10 Outpatient Rosales KARIMI [facility] [id number] Univers 09:35:00 09:35:00 ERNESTO maria fernanda [facility] 2020-07-03 2020-07-03 Outpatient R DAVID [facility] [id number] Univers 08:00:00 08:00:00 BRYAN [facility] 2020-05-07 2020-05-07 Outpatient R WENDI [facility] [id number] Univers 15:40:00 15:40:00 RUTH yadira [facility] 2020-05-04 2020-05-04 Outpatient R MARY JANE ROBLES [facility] [id number] Univers 00:00:00 00:00:00 MARY JANE ROBLES maria fernanda [facility] 2020-04-28 2020-04-28 Outpatient R HARSH [facility] [id number] Univers 15:00:00 15:00:00 STU irving [facility] 2020-04-17 2020-04-17 Outpatient MARY JANE GUERRERO [facility] [id number] Univers 08:00:00 08:00:00 MARY JANE ROBLES yadira [facility] 2020-04-03 2020-04-03 Outpatient Rosales HERNANDEZ [facility] [id number] Univers 13:00:00 13:00:00 BRYAN [facility] 2020-03-28 2020-03-28 Outpatient Rosales PHELPS [facility] [id number] Univers 10:30:00 10:30:00 PEYTON [facility] 2020-01-19 2020-01-19 Outpatient Rosales ELIZABETH [facility] [id number] Univers 09:30:00 09:30:00 CHARO [facility] 2019-09-29 2019-09-29 Outpatient Rosales PHELPS [facility] [id number] Univers 10:00:00 10:00:00 PEYTON [facility] Results Test Description Test Time Test Comments Results Result Comments Source HEMOGLOBIN A1C 2022-03-20 00:00:00 Test Item Value Reference Range Interpretation Comme nts A1C (test code = 4548-4) 7.2
--- NOTE | 2022-12-02 14:55 | RAD REPORT ---
EXAM DESCRIPTION: RAD - Ribs Left - 12/02/2022 2:48 pm CLINICAL HISTORY: PAIN COMPARISON: <Comparisons> FINDINGS: No displaced rib fracture seen. Moderate osteopenia.
--- NOTE | 2022-12-02 14:58 | RAD REPORT ---
EXAM DESCRIPTION: RAD - Humerus Left - 12/02/2022 2:48 pm CLINICAL HISTORY: PAIN COMPARISON: <Comparisons> FINDINGS: Small radiopaque foreign body is noted in the soft tissues posterior elbow. Diffuse osteop enia. No fracture or dislocation.
--- NOTE | 2022-12-02 14:59 | RAD REPORT ---
EXAM DESCRIPTION: RAD - Forearm Left - 12/02/2022 2:48 pm CLINICAL HISTORY: PAIN COMPARISON: <Comparisons> FINDINGS: No fracture or dislocation seen. Calcification of the TFCC is noted in the wrist. Small ra diopaque foreign body seen medial elbow soft tissue.
--- NOTE | 2022-12-02 15:24 | ER ---
Nurse's Notes [facility] Name: Nell Mendoaz Age: 77 yrs Sex: Female : 1945 Arrival Date: 12/02/2022 Time: 13:35 Bed 10 Private MD: Diagnosis: Fall on same level from slipping, tripping and stumbling without subsequent striking against object;Pain in left arm Presentation: 12/02 13:53 Chief complaint: Patient states: "I fell about a week ago, I slipped with the shoes I aa5 had on and fell". Pt c/o pain to left arm and denies head injury. Onset of symptoms was November 2022. 13:53 Acuity: SOPHIA 4 aa5 13:53 Risk Assessment: Do you want to hurt yourself or someone else? Patient reports no aa5 desire to harm self or others. 13:53 Coronavirus screen: At this time, the client does not indicate any symptoms associated aa5 with coronavirus-19. Ebola Screen: Patient denies travel to an Ebola-affected area in the 21 days before illness onset. Initial Sepsis Screen: Does the patient meet any 2 criteria? No. Patient's initial sepsis screen is negative. Does the patient have a suspected source of infection? No. Patient's initial sepsis screen is negative. 13:53 Method Of Arrival: Ambulatory aa5 Historical: - Allergies: 13:54 No Known Allergies; aa5 - PMHx: 13:54 Diabetes mellitus; Hypertensive disorder; acid reflux; aa5 - PSHx: 13:54 None; aa5 - Immunization history:: Adult Immunizations unknown. - Social history:: Smoking status: Patient denies any tobacco usage or history of. Screenin:27 [facility] ED Fall Risk Assessment (Adult) History of falling in the last 3 months, ko1 including since admission No falls in past 3 months (0 pts) Confusion or Disorientation No (0 pts) Intoxicated or Sedated No (0 pts) Impaired Gait No (0 pts) Mobility Assist Device Used No (0 pt) Altered Elimination No (0 pt) Score/Fall Risk Level 0 - 2 = Low Risk Oriented to surroundings, Maintained a safe environment, Educated pt \\T\\ family on fall prevention, incl call for assistance when getting out of bed, Assessed \\T\\ reinforced patient's understanding of fall precautions, Provided non-skid footwear, Hourly rounding (assess needs \\T\\ fall precautionary measures) done, Used ambulatory aids as needed (educated on \\T\\ assisted with), Used gait belt as appropriate. Abuse screen: Denies threats or abuse. Denies injuries from another. Nutritional screening: No deficits noted. Tuberculosis screening: No symptoms or risk factors identified. Assessment: 15:26 General: Appears in no apparent distress. comfortable, Behavior is calm, cooperative, ko1 appropriate for age. Pain: Pain: Complains of pain in left arm. Neuro: No deficits noted. Cardiovascular: No deficits noted. Respiratory: No deficits noted. GI: No deficits noted. : No deficits noted. EENT: No deficits noted. Derm: No deficits noted. 15:27 Musculoskeletal: Reports pain in left arm. ko1 Vital Signs: 13:53 BP 149 / 75; Pulse 64; Resp 16 S; Temp 97.1(TE); Pulse Ox 99% on R/A; aa5 15:29 Pulse 72; Resp 16; Pulse Ox 99% ; ko1 ED Course: 13:36 Patient arrived in ED. rg4 13:52 Arm band placed on. aa5 13:53 Triage completed. aa5 14:01 Starr Menezes FNP-C is [facility]. kb 14:01 David Yang MD is Attending Physician. kb 14:49 Forearm Left XRAY In Process Unspecified. EDMS 14:49 Humerus Left XRAY In Process Unspecified. EDMS 14:49 Ribs Left XRAY In Process Unspecified. EDMS 15:26 Yas Hauser, RN is Primary Nurse. ko1 15:27 Patient has correct armband on for positive identification. Bed in low position. Call ko1 light in reach. Side rails up X 1. Pulse ox on. NIBP on. Door closed. Noise minimized. 15:27 No provider procedures requiring assistance completed. Patient did not have IV access ko1 during this emergency room visit. Administered Medications: No medications were administered Medication: 15:27 VIS not applicable for this client. ko1 Outcome: 15:23 Discharge ordered by . kb 15:30 Discharged to home ambulatory. ko1 15:30 Condition: stable 15:30 Discharge instructions given to patient, Instructed on discharge instructions, follow up and referral plans. medication usage, Demonstrated understanding of instructions, follow-up care, medications, Prescriptions given X 1. 15:35 Patient left the ED. ko1 Signatures: Dispatcher [employer] EDMS Starr Menezes, LATRIICA LONG-Isidra Vuong RN RN aa5 Diamante August rg4 Yas Hauser RN RN ko1 Corrections: (The following items were deleted from the chart) 15:28 15:26 Pain: ko1 ko1
--- NOTE | 2022-12-02 15:24 | EDPHYS ---
Physician Documentation [facility] Name: Nell Mendoza Age: 77 yrs Sex: Female : 1945 Arrival Date: 12/02/2022 Time: 13:35 Bed 10 Private MD: ED Physician David Yang HPI: 12/02 15:52 This 77 yrs old Female presents to ER via Ambulatory with complaints of Fall 1 kb week Ago. 15:52 Details of fall: The patient fell from an upright position. Onset: The symptoms/episode kb began/occurred 1 week(s) ago. Associated injuries: The patient sustained injury to the chest, specifically the left lateral anterior chest, tenderness, left arm, painful injury. Severity of symptoms: At their worst the symptoms were moderate, in the emergency department the symptoms are unchanged. The patient has not experienced similar symptoms in the past. The patient has not recently seen a physician. 15:53 Pt reports she tripped and fell last week and has been having left arm and left lateral kb chest wall pain since then. Historical: - Allergies: 13:54 No Known Allergies; aa5 - PMHx: 13:54 Diabetes mellitus; Hypertensive disorder; acid reflux; aa5 - PSHx: 13:54 None; aa5 - Immunization history:: Adult Immunizations unknown. - Social history:: Smoking status: Patient denies any tobacco usage or history of. ROS: 15:51 Constitutional: Negative for fever, chills, and weight loss. kb 15:51 Cardiovascular: Positive for chest pain, with movement, of the left lateral anterior chest. 15:51 MS/extremity: Positive for pain, of the left arm. 15:51 All other systems are negative. Exam: 15:51 Constitutional: This is a well developed, well nourished patient who is awake, alert, kb and in no acute distress. Head/Face: Normocephalic, atraumatic. ENT: Moist Mucous membranes Cardiovascular: Regular rate and rhythm with a normal S1 and S2. No gallops, murmurs, or rubs. No pulse deficits. Respiratory: Respirations even and unlabored. No increased work of breathing. Talking in full sentences Skin: Warm, dry with normal turgor. Normal color. MS/ Extremity: Pulses equal, no cyanosis. Neurovascular intact. Full, normal range of motion. Neuro: Awake and alert, GCS 15, oriented to person, place, time, and situation. Moves all extremities. Normal gait. 15:51 Chest/axilla: Inspection: normal, Palpation: tenderness, that is mild, of the left lateral anterior chest, that totally reproduces the patient's complaints. Vital Signs: 13:53 BP 149 / 75; Pulse 64; Resp 16 S; Temp 97.1(TE); Pulse Ox 99% on R/A; aa5 15:29 Pulse 72; Resp 16; Pulse Ox 99% ; ko1 MDM: 14:02 Patient medically screened. kb 15:51 Data reviewed: vital signs, nurses notes. kb 15:54 Differential diagnosis: contusion, fracture, strain. Counseling: I had a detailed kb discussion with the patient and/or guardian regarding: the historical points, exam findings, and any diagnostic results supporting the discharge/admit diagnosis, radiology results, the need for outpatient follow up, a family practitioner, to return to the emergency department if symptoms worsen or persist or if there are any questions or concerns that arise at home. 12/02 14:06 Order name: Forearm Left XRAY; Complete Time: 15:14 aa5 12/02 14:06 Order name: Humerus Left XRAY; Complete Time: 15:14 aa5 12/02 14:06 Order name: Ribs Left XRAY; Complete Time: 15:14 aa5 Administered Medications: No medications were administered Disposition: 17:42 Co-signature as Attending Physician, David Yang MD I reviewed the patient's care rt provided by the Advanced Practice Provider and agree with the diagnosis and treatment plan. Disposition Summary: 12/02/22 15:23 Discharge Ordered Location: Home kb Condition: Stable kb Diagnosis - Fall on same level from slipping, tripping and stumbling without subsequent kb striking against object - Pain in left arm kb Followup: kb - With: Emergency Department - When: As needed - Reason: Worsening of condition Followup: kb - With: Private Physician - When: 2 - 3 days - Reason: Recheck today's complaints, Continuance of care, Re-evaluation by your physician Discharge Instructions: - Discharge Summary Sheet kb - Musculoskeletal Pain kb Forms: - Medication Reconciliation Form kb - Thank You Letter kb - Antibiotic Education kb - Prescription Opioid Use kb Prescriptions: - Ibuprofen 600 mg Oral Tablet - take 1 tablet by ORAL route every 6 hours As needed take with food; 30 tablet; kb Refills: 0, Product Selection Permitted Signatures: Dispatcher [employer] Starr Calero, Isidra Ceballos, RN RN aa5 David Yang MD MD rt
[2022-12-02 16:25] VITALS: BP 149/75; TEMP 97.1; O2SAT 99
== END 2022-12-02 15:35 | disposition home or self-care (01) ==
LOC: ER 13:35
DX: M79.602 Pain in left arm (principal); W01.10XA Fall on same level from slipping, tripping and stumbling with subsequent striking against unspecified object, initial encounter; E11.9 Type 2 diabetes mellitus without complications; I10 Essential (primary) hypertension